=== PATIENT | male | born 1975 | race Caucasian/White ===

== ENCOUNTER 2017-04-03 05:35 | Inpatient (IN) | payer BC ==
[~2017-04-03] VITALS: Ht 165.1 cm; Wt 95.2 kg
[~2017-04-03 05:35] MED LIST: LEVOTHYROXINE25 MCG PO
--- NOTE | 2017-04-04 10:17 | OR ---
[facility] [address], [place] [address] Signed DATE OF OPERATION: 04/03/2017 SURGEON: Idania Adorno MD PREOPERATIVE DIAGNOSIS: Recurrent periumbilical incarcerated hernias x3. POSTOPERATIVE DIAGNOSIS: Recurrent periumbilical incarcerated hernias x3. PROCEDURE: Open repair of recurrent incarcerated periumbilical hernias x3 with intraabdominal Ventrio mesh (13.8 x 17.8 cm). ESTIMATED BLOOD LOSS: None. 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 He said his job was not quite as physical as it used to be. However, he still has to keep track of the loads and if he can find something, he has to dig through canisters and trailers until he finds it. He had developed an umbilical hernia and had it repaired in 2016, with Dr. Roland Michel. Dr. Michel had used a 11.3 cm Ventrio circular graft in the abdomen. He had 4 stay sutures superiorly, inferiorly, and then left and right side. He had quite a bit of pain after the surgery from the stay sutures, but in due time, he seemed to heal up. Unfortunately, he has developed a recurrent hernia underneath the stay suture in the superior midline. He was having trouble with pain, so he finally had a CT scan done at [facility]. In fact, he had 3 periumbilical hernias containing incarcerated fat with stranding, at least one is said to be lateral and to the left of the umbilicus. The umbilical fascial defect of course was closed at the initial surgery. Given his ongoing pain and symptoms, he had been asked to see me as a general surgeon. I met with Yohana in the office and I could certainly see and feel the hernia in the superior midline. I gave Yohana a booklet on hernias and we looked at that carefully. We looked at his umbilical hernia repair and use of the mesh. I explained to Yohana this would require a larger incision and we would have to remove the old mesh and assess his 3 hernias and then choose the appropriate sized mesh based on our intraoperative findings. Also with this amount of surgery, he would need to stay in the hospital at least 24 hours if not several days. He told me he had quite a bit of trouble last time with pain control and so our plan is to start with IV Dilaudid and hydrocodone and we will adjust from there. Electronically Signed By: IDANIA ADORNO MD 04/04/17 1017 PATIENT NAME: YOHANA HANNA OPERATIVE REPORT DATE OF : 77 PHYSICIAN: IDANIA ADORNO MD REPORT #: [id number] REPORT IS CONFIDENTIAL AND NOT TO BE RELEASED WITHOUT AUTHORIZATION [address] [address] Signed He understands the nature of the surgery. He understands that there is risk including, but not limited to bleeding, infection, scarring, change in contour of the skin, damage to bowel infection of mesh requiring removal, recurrent hernias, and chronic pain. He had expressed understanding and wished to proceed. PROCEDURE NOTE: I met with Yohana and his in our preop area. We all agreed on the location of the surgery and we marked that appropriately. Once again, we could easily see the hernia in the superior midline above the umbilicus. After this, Yohana was taken into the operating room and given a spinal anesthetic per our nurse mannequin decorator. After this, he was laid in the supine position under general endotracheal tube anesthesia. He was given preoperative antibiotics and later given subcutaneous heparin. SCDs were utilized. A Luciano catheter was inserted with return of clear yellow urine. He was then prepped and draped in the usual sterile fashion. A standard vertical periumbilical incision was made and carried down through the tissue bluntly and with the cautery. Of course, we found all 4 stay sutures traveling through the subcutaneous adipose tissue to the abdominal wall. We found the hernia associated with the superior midline incision and then also on the left side. That gave us access to the abdominal cavity after we excised those hernia sacs. We found that his mesh had rolled up almost like a cigar. It was traveling transversely underneath the suture repair of his umbilical fascial defect. We opened that up and inferiorly the stay suture was fine. We cut that and brought that through the abdominal wall. There was no hernia there, but as we worked our way around to the right side, we indeed found another hernia containing incarcerated fat with the stay suture. We carefully the mesh from the underlying omentum with the help of a cautery. We also the mesh from the underneath the abdominal wall with the help of cautery. The entire piece of mesh was then passed off the field. We made sure there were no holes in the omentum that could generate an internal hernia. After this, we washed and irrigated the wound. We used our straight Ranjeet's to bring the fascia together in the midline and we felt there was just far too much tension and it was buckling his abdominal wall just a bit. We decided to close the fascial defect transversely without any tension. In doing this also, it incorporated the 3 fascial defects into one defect. We measured the defect in total and it was 6 cm both superiorly and inferiorly as well as transversely. Consequently, we chose our 13.8 x 17.8 cm Ventrio mesh and we placed that in the abdominal cavity transversely, so the long axis of the mesh is underneath the long axis directly underneath the umbilicus. We then closed the fascial defect transversely with interrupted [id number] #2 and #1 Prolene sutures with several passes of the suture going through the top layer of the mesh to help hold it in place and keep it centered. After this, the wound was irrigated once again. We then brought the umbilical skin down to the midline fascia with an interrupted 2-0 PDS suture. The dermis was then reapproximated with multiple interrupted 3-0 subcuticular Monocryl sutures. The skin edges were reapproximated with a running 6-0 fast absorbing plain gut suture. Dry gauze and tape were then applied. Electronically Signed By: IDANIA ADORNO MD 04/04/17 1017 PATIENT NAME: YOHANA HANNA OPERATIVE REPORT DATE OF : 77 PHYSICIAN: IDANIA ADORNO MD REPORT #: [id number] REPORT IS CONFIDENTIAL AND NOT TO BE RELEASED WITHOUT AUTHORIZATION [facility] [address] [place] [id number] Signed Yohana was then awakened from his anesthesia, extubated in the OR, and taken to recovery room in stable condition. We did remove the Luciano catheter while he was asleep without difficulties. MD NATASHA Gillis/OSORIOL /[id number] cc: Jabier Chance NP Electronically Signed By: IDANIA ADORNO MD 04/04/17 1017 PATIENT NAME: YOHANA HANNA OPERATIVE REPORT DATE OF : 77 PHYSICIAN: IDANIA ADORNO MD REPORT #: [id number] REPORT IS CONFIDENTIAL AND NOT TO BE RELEASED WITHOUT AUTHORIZATION
[2017-04-06] MEDS ORDERED: NORCO 10-325 T1 EACH PO (10:09)
--- NOTE | 2017-04-07 10:08 | DS ---
[facility] [address], [place] [address] Signed ADMISSION DATE: 04/05/2017 DISCHARGE DATE: 04/06/2017 FINAL DIAGNOSIS: Recurrent periumbilical hernias x3. PROCEDURE: Open repair of recurrent incarcerated periumbilical hernias x3 with intraabdominal Ventrio mesh (13.8 x 17.8 cm). HISTORY OF PRESENT ILLNESS: Yohana is a 42-year-old gentleman who originally underwent repair of umbilical hernia with intraabdominal mesh. He had four stay sutures placed at the superior inferior left and right positions. He developed hernias underneath three of the stay sutures, left and right and superior. He does have a fairly laborious job at the [employer]. The hernia in the middle was causing him quite a bit of trouble. He had been for CT scan, confirmed all three hernias. He was therefore asked to see me as a general surgeon. We had brought him to the hospital and removed the old mesh and closed the three hernia defects and placed our new Ventrio mesh measuring 13.8 x 17.8 cm transversely underneath the center portion of the umbilicus. HOSPITAL COURSE: Yohana was admitted as above and underwent his surgery on 04/03/2017. We kept him in the hospital. He did have some abdominal distention and some postop urinary retention. He did well with pain control including the spinal that he received. He has been doing well with his hydrocodone 10 mg. He has been taking one tablet or even half a tablet. He started to pass some flatus and we were able to get him through clear liquid diet up to his full liquid diet today. He has passed quite a bit of flatus and been walking around and doing much better. His incision remains satisfactory without any local signs or symptoms of infection. At his baseline, he does have a little abdominal distention, but he is nontender and doing quite well otherwise. At this point, we are going to be discharging him to home. DISCHARGE PLANS AND MEDICATIONS: Yohana will be discharged home with Thayer 10/325, 1-2 tablets p.o. q.4-6 hours p.r.n. pain. We will dispense 60 tablets with no refills. He can resume his chronic medications at home. He can perform his activities of daily living including walking up and down stairs and showering and bathing as needed. We have asked him not to do any heavy pushing, pulling, or lifting over 10 pounds. He gets constipated. He is welcome to take to an [id number] laxative. Given his recurrent hernias in his job, it looks like he has had it for 8 weeks, off work in order to heal so that he can return to Electronically Signed By: IDANIA TAFOYA MD 04/07/17 1008 PATIENT NAME: YOHANA HANNA DISCHARGE SUMMARY DATE OF : 77 PHYSICIAN: IDANIA TAFOYA MD REPORT #: [id number] REPORT IS CONFIDENTIAL AND NOT TO BE RELEASED WITHOUT AUTHORIZATION [facility] [address], [place] [address] Signed work without restrictions. I have reviewed this with Yohana and his in detail. They have expressed understanding and agreed to above plan. Idania Tafoya MD ALB/MODL /[id number] cc: MD Jabier Gillis NP Electronically Signed By: IDANIA TAFOYA MD 04/07/17 1008 PATIENT NAME: YOHANA HANNA DISCHARGE SUMMARY DATE OF : 77 PHYSICIAN: IDANIA TAFOYA MD REPORT #: [id number] REPORT IS CONFIDENTIAL AND NOT TO BE RELEASED WITHOUT AUTHORIZATION
== END 2017-04-06 10:40 | disposition home or self-care (01) | DRG 355 ==
LOC: DS 05:35 → MS 13:10 → DS 13:11 → MS 13:11
PROVIDERS: ADMIT Colon & Rectal Surgery
PROC: 0WUF0JZ Supplement Abdominal Wall with Synthetic Substitute, Open Approach (ICD-10-PCS; principal; 2017-04-03 07:00)
DX: K42.0 Umbilical hernia with obstruction, without gangrene (principal)
CPT/HCPCS: 00750; 51798; 94762; 96361; 96372; 96374; C1781; G0378; J0330; J0690; J1100; J1170; J1200; J1644; J1885; J2250; J2274; J2300; J2405; J2704; J2710; J2765; J3010; J7120

== ENCOUNTER 2024-12-02 22:57 | Emergency (ER) | payer OTHER ==
[~2024-12-02] VITALS: Ht 165.1 cm; Wt 120.0 kg
[~2024-12-02 22:57] MED LIST changes: +NORCO 10-325 T1 EACH PO
[2024-12-02] MEDS ORDERED: ZESTRIL40 MG PO (23:15)
[2024-12-02 23:26] LABS: BASOPHILS 0.7 % (0.2-1.2); EOSINOPHILS 3.2 % (0.8-7.0); LYMPHOCYTES 26.6 % (21.8-53.1); MCH 32.6 PG (25.7-32.2); MCHC 35.0 g/dL (32.3-36.5); MCV 93.0 fL (79.0-92.2); MONOCYTES 6.0 % (5.3-12.2); NEUTROPHILS 63.1 % (34.0-67.9); RBC 4.45 M/uL (4.63-6.08)
[2024-12-02] MEDS ORDERED: LORazepam 1 MG TAB PO ONE (23:30)
[2024-12-03 00:02] LABS: INR 0.98 (0.80-1.30); PROTIME 12.3 Sec (11.2-14.2)
[2024-12-03 00:16] LABS: ALT (SGPT) 31.0 U/L (14-59); AST (SGOT) 18.0 U/L (15-37); GLOMERULAR FILTRATION RATE,EST 72.0 mL/min (>60); PROTEIN, TOTAL 6.8 g/dL (6.4-8.2); UREA NITROGEN 17.0 mg/dL (7-18)
[2024-12-03 00:49] VITALS: BP 119/63
--- NOTE | 2024-12-04 11:46 | EKG ---
[facility] [address] [facility] [place], [place] [address] Signed Sinus rhythm with occasional premature ventricular complexes Possible Anterior infarct , age undetermined Abnormal ECG No previous ECGs available Confirmed by ALEJANDRA PATEL MD ([id number]) on 12/04/2024 11:46:07 AM Electronically Signed By: ALEJANDRA PATEL 12/04/24 1146 PATIENT NAME: YOHANA HANNA Electrocardiogram DATE OF : 77 PHYSICIAN: ALEJANDRA PATEL REPORT #: [id number] REPORT IS CONFIDENTIAL AND NOT TO BE RELEASED WITHOUT AUTHORIZATION
== END 2024-12-03 00:50 | disposition home or self-care (01) ==
LOC: ED 22:57
PROVIDERS: Family Medicine
DX: I49.3 Ventricular premature depolarization (principal); I10 Essential (primary) hypertension; E03.9 Hypothyroidism, unspecified; G47.30 Sleep apnea, unspecified; Z79.890 Hormone replacement therapy; Z79.899 Other long term (current) drug therapy
CPT/HCPCS: 36415; 71045; 80053; 83735; 83880; 84484; 85025; 85379; 85610; 93005; 93010; 99285-25